=== PATIENT | female | born 1980 | race Hispanic/Latino ===

== ENCOUNTER 2020-05-09 12:27 | Emergency (ER) | payer SELFPAY ==
[~2020-05-09] VITALS: Ht 157.5 cm; Wt 45.4 kg
[2020-05-09] MEDS ORDERED: CEPHALEXIN500 M1 PO ×2 (12:51→13:00)
[2020-05-09] MEDS ORDERED: ALLERGY RELF10 M3 PO (13:00)
[2020-05-09 13:08] VITALS: BP 110/56
== END 2020-05-09 13:13 | disposition home or self-care (01) | DRG 603 ==
LOC: ED 12:27
DX: L03.113 Cellulitis of right upper limb (principal)